=== PATIENT | male | born 1955 | race Caucasian/White ===

== ENCOUNTER 2016-10-13 21:13 | Observation (INO) | payer MEDICAID ==
[~2016-10-13] VITALS: Ht 182.9 cm; Wt 72.6 kg
[2016-10-13 22:13] LABS: Basophils # (auto) 0 uL; DEFINITIVE VIEW TRANSMISSION; Eosinophils # (auto) 0 uL; Eosinophils % (auto) 0.2 % (0.0-7.0); Hematocrit 23.5 % (41.0-53.0); Lymphocytes # (auto) 0.5 uL; Monocytes # (auto) 1.1 uL; White Blood Cell 18.6 10^3/uL (4.4-10.8)
[2016-10-13 22:16] LABS: Hemoglobin 7.5 g/dL (13.5-17.5); Lymphocytes % (auto) 2.7 % (10.0-50.0); Mean Corpuscular Hemoglobin 26.5 pg (28.0-32.0); Mean Corpuscular Volume 82.9 fL (80.0-100.0); Mean Platelet Volume 6.3 fL (7.4-10.4); Monocytes % (auto) 5.7 % (0.0-12.0); Neutrophils % (auto) 91.4 % (37.0-80.0); Platelet Count (auto) 629 10^3/uL (140-450)
[2016-10-13 22:17] LABS: Red Cell Distribution Width 20.6 % (11.6-16.0)
[2016-10-13 22:24] LABS: Albumin 1.6 g/dL (3.4-5.0); Anion Gap 8 (5-15); BUN/Creatinine Ratio 24.4; Blood Urea Nitrogen 19 mg/dL (7-18); Calcium 7.6 mg/dL (8.5-10.1); Carbon Dioxide 28 mmol/L (21-32); Chloride 101 mmol/L (98-107); GFR African American 130 mL/min; GFR Non-African American 108 mL/min; Glucose 139 mg/dL (74-106); Potassium 3.7 mmol/L (3.5-5.1); Sodium 137 mmol/L (136-145)
[2016-10-13 22:28] LABS: Partial Thromboplastin Time 30.3 sec (22.64-33.71)
[2016-10-13 22:29] LABS: INR 1.2 (0.9-1.15); Prothrombin Time 12.4 sec (9.37-12.3)
[2016-10-13 22:32] LABS: Alkaline Phosphatase 598 U/L (45-117); Aspartate Aminotransferase 10 U/L (15-37); Bilirubin, Total 0.3 mg/dL (0.2-1.0); Total Protein 6.2 g/dL (6.4-8.2)
[2016-10-13 22:33] LABS: B-Type Natriuretic Peptide 56.33 pg/mL (0-100)
[2016-10-13] MEDS ORDERED: SODIUM CHLORIDE 0.9% 1,000 ML IV ONE (22:45)
[2016-10-13 23:06] LABS: Platelet Clumps FEW; Platelet Estimate Increased
[2016-10-13 23:08] LABS: Anisocytosis Slight
[2016-10-13 23:09] LABS: Hypochromia Slight
[2016-10-13 23:50] LABS: Temperature: 22.3 C (20.0-25.0)
[2016-10-14] MEDS ORDERED: LEVOFLOXACIN 750MG 150 ML IV ONE (01:30)
[2016-10-14 02:03] LABS: Urine Bilirubin Negative (Negative); Urine Blood Negative /uL (Negative); Urine Color Yellow (Yellow); Urine Glucose Normal (Normal); Urine Ketone Negative (Negative); Urine Mucus FEW (None Seen); Urine Nitrite Negative (Negative); Urine RBC 1 /hpf (0 - 3); Urine Squamous Epithelial Cell FEW /hpf (<5); Urine Urobilinogen Normal (Negative)
[2016-10-14 05:21] VITALS: BP 106/67
== END 2016-10-14 05:31 | disposition home or self-care (01) | DRG 54 ==
LOC: ER 21:18 → OVERFLOW 10-14 01:49 → ER 10-14 05:31
PROVIDERS: ADMIT Emergency Medicine; ATTEND Emergency Medicine
DX: R51 Headache (principal); J01.21 Acute recurrent ethmoidal sinusitis; R53.1 Weakness; Z85.118 Personal history of other malignant neoplasm of bronchus and lung
CPT/HCPCS: 36415; 70450; 71010; 80053; 81001; 83605; 83880; 84484; 85025; 85610; 85730; 87040; 93005; 96361; 96365; 96366; 99285; G0378; J1956; J7030